=== PATIENT | male | born 1970 | race Caucasian/White ===

== ENCOUNTER 2018-12-19 07:33 | Emergency (ER) | payer OTHER ==
[2018-12-19] MEDS ORDERED: Sodium Chloride 0.9% 1,000 ML IV STA (08:16)
[2018-12-19] MEDS ORDERED: Sodium Chloride 0.9% 10 ML Syringe FLUSH PRN (08:16)
[2018-12-19] MEDS ORDERED: Ondansetron 4 MG/2 ML SDV IVPUSH ONE (08:16)
[2018-12-19] MEDS ORDERED: HYDROmorphone 0.5 MG/0.5 ML Syringe IVPUSH ONE ×2 (08:19→10:58)
--- NOTE | 2018-12-19 10:13 | CT ---
Head CT Technique: Multiple axial sections through the brain were obtained. Intravenous contrast was not utilized. Comparison: No prior intracranial imaging. Findings: Ventricles along with basal cisterns and sulci over the convexities are within normal limits for the patient's age. No abnormal parenchymal densities are seen. No evidence of intracranial hemorrhage. No midline shift or mass effect is seen. Bone window settings were reviewed which show no acute paranasal sinus findings. Mastoid sinuses are clear. No acute calvarial abnormality is appreciated. Impression: 1. Nothing acute is identified on noncontrast head CT exam. Diagnostic code #1
[2018-12-19] MEDS ORDERED: cefTRIAXone 1 GM in Sodium Chloride 0.9% 100 ML IV ONE (12:31)
[2018-12-19] MEDS ORDERED: Sodium Chloride 0.9% 1,000 ML IV ONE (12:31)
[2018-12-19] MEDS ORDERED: Metoclopramide 10 MG/2 ML SDV IVPUSH ONE (12:32)
--- NOTE | 2018-12-19 12:52 | EDM.PDOC ---
ED HPI GENERAL MEDICAL PROBLEM - General Chief Complaint: Fever Stated Complaint: VOMITING,FEVER,CHILLS AND YELLOWING IN EYES Time Seen by Provider: 12/19/18 07:53 Source of Information: Reports: Patient, Family History Limitations: Reports: No Limitations - History of Present Illness INITIAL COMMENTS - FREE TEXT/NARRATIVE: The patient presents with a fever, chills, headache, neck pain, abdominal pain, nausea and vomiting. 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 He has not been eating or drinking much. He had a temp of 100 now. He denies a sore throat or cough. He has no chest pain. He has no health problems. He has no numbness but he does have generalized weakness. Onset: Gradual Duration: Day(s): (Since Wednesday) Location: Reports: Head, Neck, Abdomen Quality: Reports: Sharp Severity: Moderate Improves with: Reports: None Worsens with: Reports: None Associated Symptoms: Reports: Fever/Chills, Headaches, Nausea/Vomiting. 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 Headache Pain Score (Numeric/FACES): 7 - Related Data Allergies Allergy/AdvReac Type Severity Reaction Status Date / Time No Known Allergies Allergy Verified 12/19/18 07:51 Home Meds: Home Meds Ondansetron [Zofran ODT] 4 mg PO Q6H PRN #20 tab.dis 12/19/18 [Rx] Past Medical History - Past Health History Medical/Surgical History: Denies Medical/Surgical History Social & Family History - Tobacco Use Smoking Status *Q: Never Smoker - Caffeine Use Caffeine Use: Reports: Energy Drinks - Recreational Drug Use Recreational Drug Use: No ED ROS GENERAL - Review of Systems Review Of Systems: See Below Constitutional: Reports: Fever, Chills, Malaise, Weakness, Fatigue HEENT: Reports: No Symptoms Respiratory: Reports: No Symptoms Cardiovascular: Reports: No Symptoms Endocrine: Reports: No Symptoms GI/Abdominal: Reports: Abdominal Pain, Nausea, Vomiting. Denies: Diarrhea : Reports: No Symptoms Musculoskeletal: Reports: Neck Pain Skin: Reports: No Symptoms Neurological: Reports: No Symptoms ED EXAM, SEPSIS - Physical Exam Exam: See Below Exam Limited By: No Limitations General Appearance: Alert, No Apparent Distress Ears: Normal External Exam Nose: Normal Inspection Throat/Mouth: Normal Inspection Head: Atraumatic, Normocephalic Neck: Tender Midline, Other (More pain with neck flexion) Respiratory/Chest: No Respiratory Distress, Lungs Clear, Normal Breath Sounds Cardiovascular: Regular Rate, Rhythm, No Edema, No Murmur GI/Abdominal Exam: Soft, Non-Tender, No Organomegaly, No Mass Back: Normal Inspection Extremities: Normal Inspection ED SEPSIS PROCEDURES - Lumbar Puncture Indication: Fever, Nuchal Rigidity, Headache Consent Obtained: Patient Position: Right Prep: CDC/MBT Guidelines, Sterile Drapes, Betadine Local Anesthesia - Lidocaine (Xylocaine): 1% Plain Local Anesthetic Volume: 2cc Vertebral Interspace: L3/L4 Spinal Needle with Stylet: 22ga, 3.5 Inch (Adult) Number of Attempts: 1 Fluid Appearance: Clear Tubes Obtained: 4 Total Fluid Amount: 4cc Complications: No Sterile Dressing: Adhesive Dressing Course - Vital Signs Last Recorded V/S: Last Vital Signs Temp 100.0 F 12/19/18 07:48 Pulse 91 12/19/18 07:48 Resp 18 12/19/18 07:48 BP 133/90 12/19/18 07:48 Pulse Ox 97 12/19/18 07:48 - Orders/Labs/Meds Orders: Active Orders 24 hr Category Date Time Status Peripheral IV Care [RC] . DIRECTED Care 12/19/18 08:16 Active CELL COUNT,CSF TUBE 2 [BF] Stat Lab 12/19/18 10:47 Results CULTURE BLOOD [BC] Stat Lab 12/19/18 08:45 Received CULTURE BLOOD [BC] Stat Lab 12/19/18 08:50 Received CULTURE CSF + SMEAR [RM] Stat Lab 12/19/18 10:47 Received UA W/MICROSCOPIC [URIN] Stat Lab 12/19/18 08:16 Ordered Sodium Chloride 0.9% [Normal Saline] 1,000 ml Med 12/19/18 12:31 Active IV ONETIME Sodium Chloride 0.9% [Saline Flush] Med 12/19/18 08:16 Active 10 ml FLUSH ASDIRECTED PRN cefTRIAXone [Rocephin] 1 gm Med 12/19/18 12:31 Active Sodium Chloride 0.9% [Normal Saline] 100 ml IV ONETIME Blood Culture x2 Reflex Set [OM.PC] Stat Oth 12/19/18 08:16 Ordered ED Antiemetic Medication Reflex [OM.PC] Stat Oth 12/19/18 08:17 Ordered Peripheral IV Insertion Adult [OM.PC] Stat Oth 12/19/18 08:16 Ordered Medication Orders Ceftriaxone Sodium 1 gm/ (Sodium Chloride) 100 mls @ 200 mls/hr IV ONETIME ONE Stop: 12/19/18 13:00 Last Admin: 12/19/18 12:42 Dose: 200 mls/hr Sodium Chloride (Normal Saline) 1,000 mls @ 1,000 mls/hr IV ONETIME ONE Stop: 12/19/18 13:30 Last Admin: 12/19/18 12:40 Dose: 1,000 mls/hr Sodium Chloride (Saline Flush) 10 ml FLUSH ASDIRECTED PRN PRN Reason: Keep Vein Open Last Admin: 12/19/18 08:30 Dose: 10 ml Labs: Laboratory Tests 12/19/18 12/19/18 12/19/18 Range/Units 08:05 08:05 08:45 WBC 2.19 L* (4.23-9.07) K/mm3 RBC 5.60 (4.63-6.08) M/mm3 Hgb 15.8 (13.7-17.5) gm/L Hct 45.2 (40.1-51.0) % MCV 80.7 (79.0-92.2) fl MCH 28.2 (25.7-32.2) pg MCHC 35.0 (32.2-35.5) g/dl RDW Std Deviation 39.8 (35.1-43.9) fL Plt Count 93 L (163-337) K/mm3 MPV 11.7 (9.4-12.3) fl Neut % (Auto) 61.6 (34.0-67.9) % Lymph % (Auto) 26.5 (21.8-53.1) % Sierra % (Auto) 8.2 (5.3-12.2) % Eos % (Auto) 0.5 L (0.8-7.0) Baso % (Auto) 2.7 H (0.1-1.2) % Neut # (Auto) 1.35 L (1.78-5.38) K/mm3 Lymph # (Auto) 0.58 L (1.32-3.57) K/mm3 Sierra # (Auto) 0.18 L (0.30-0.82) K/mm3 Eos # (Auto) 0.01 L (0.04-0.54) K/mm3 Baso # (Auto) 0.06 (0.01-0.08) K/mm3 Manual Slide Review Abnormal smear Sodium 137 (136-145) mEq/L Potassium 4.2 (3.5-5.1) mEq/L Chloride 101 (98-107) mEq/L Carbon Dioxide 25 (21-32) mEq/L Anion Gap 15.2 H (5-15) BUN 11 (7-18) mg/dL Creatinine 1.2 (0.7-1.3) mg/dL Est Cr Clr Drug Dosing TNP Estimated GFR (MDRD) > 60 (>60) mL/min BUN/Creatinine Ratio 9.2 L (14-18) Glucose 114 H (74-106) mg/dL Calcium 8.9 (8.5-10.1) mg/dL Total Bilirubin 1.2 H (0.2-1.0) mg/dL AST 211 H (15-37) U/L ALT 266 H (16-63) U/L Alkaline Phosphatase 197 H (46-116) U/L C-Reactive Protein 16.8 H* (<1.0) mg/dL Total Protein 7.1 (6.4-8.2) g/dl Albumin 3.6 (3.4-5.0) g/dl Globulin 3.5 gm/dL Albumin/Globulin Ratio 1.0 (1-2) Lipase 88 (73-393) U/L CSF Volume (2) ml CSF Color (2) CSF Supernat Color (2) CSF Appearance (2) (CLEAR) CSF WBC (2) (0-8) /uL CSF RBC (2) (0-0.010) /mm*3 CSF Glucose (40-70) mg/dl CSF Total Protein (15-45) mg/dl Monoscreen Negative (NEGATIVE) 12/19/18 12/19/18 Range/Units 10:47 10:47 WBC (4.23-9.07) K/mm3 RBC (4.63-6.08) M/mm3 Hgb (13.7-17.5) gm/L Hct (40.1-51.0) % MCV (79.0-92.2) fl MCH (25.7-32.2) pg MCHC (32.2-35.5) g/dl RDW Std Deviation (35.1-43.9) fL Plt Count (163-337) K/mm3 MPV (9.4-12.3) fl Neut % (Auto) (34.0-67.9) % Lymph % (Auto) (21.8-53.1) % Sierra % (Auto) (5.3-12.2) % Eos % (Auto) (0.8-7.0) Baso % (Auto) (0.1-1.2) % Neut # (Auto) (1.78-5.38) K/mm3 Lymph # (Auto) (1.32-3.57) K/mm3 Sierra # (Auto) (0.30-0.82) K/mm3 Eos # (Auto) (0.04-0.54) K/mm3 Baso # (Auto) (0.01-0.08) K/mm3 Manual Slide Review Sodium (136-145) mEq/L Potassium (3.5-5.1) mEq/L Chloride (98-107) mEq/L Carbon Dioxide (21-32) mEq/L Anion Gap (5-15) BUN (7-18) mg/dL Creatinine (0.7-1.3) mg/dL Est Cr Clr Drug Dosing Estimated GFR (MDRD) (>60) mL/min BUN/Creatinine Ratio (14-18) Glucose (74-106) mg/dL Calcium (8.5-10.1) mg/dL Total Bilirubin (0.2-1.0) mg/dL AST (15-37) U/L ALT (16-63) U/L Alkaline Phosphatase (46-116) U/L C-Reactive Protein (<1.0) mg/dL Total Protein (6.4-8.2) g/dl Albumin (3.4-5.0) g/dl Globulin gm/dL Albumin/Globulin Ratio (1-2) Lipase (73-393) U/L CSF Volume (2) 1.5 ml CSF Color (2) Colorless CSF Supernat Color (2) No xanthochromia CSF Appearance (2) Clear (CLEAR) CSF WBC (2) 1 (0-8) /uL CSF RBC (2) 0.001 (0-0.010) /mm*3 CSF Glucose 70.0 (40-70) mg/dl CSF Total Protein 26.6 (15-45) mg/dl Monoscreen (NEGATIVE) Meds: Medications Generic Name Dose Route Start Last Admin Trade Name Marlonq PRN Reason Stop Dose Admin Ceftriaxone Sodium 1 gm/ 100 mls @ 200 mls/hr 12/19/18 12:31 12/19/18 12:42 Sodium Chloride IV 12/19/18 13:00 200 mls/hr ONETIME ONE Administration Sodium Chloride 1,000 mls @ 1,000 mls/hr 12/19/18 12:31 12/19/18 12:40 Normal Saline IV 12/19/18 13:30 1,000 mls/hr ONETIME ONE Administration Sodium Chloride 10 ml 12/19/18 08:16 12/19/18 08:30 Saline Flush FLUSH 10 ml ASDIRECTED PRN Administration Keep Vein Open Discontinued Medications Generic Name Dose Route Start Last Admin Trade Name Lucas PRN Reason Stop Dose Admin Hydromorphone HCl 0.5 mg 12/19/18 08:19 12/19/18 08:31 Dilaudid IVPUSH 12/19/18 08:20 0.5 mg ONETIME ONE Administration Hydromorphone HCl 0.5 mg 12/19/18 10:58 12/19/18 11:14 Dilaudid IVPUSH 12/19/18 10:59 0.5 mg ONETIME ONE Administration Sodium Chloride 1,000 mls @ 1,000 mls/hr 12/19/18 08:16 12/19/18 08:28 Normal Saline IV 12/19/18 09:15 1,000 mls/hr .BOLUS STA Administration Metoclopramide HCl 10 mg 12/19/18 12:32 12/19/18 12:42 Reglan IVPUSH 12/19/18 12:33 10 mg ONETIME ONE Administration Ondansetron HCl 4 mg 12/19/18 08:16 12/19/18 08:30 Zofran IVPUSH 12/19/18 08:17 4 mg ONETIME ONE Administration - Re-Assessments/Exams Free Text/Narrative Re-Assessment/Exam: 12/19/18 12:53 I ordered an IV NS 1L bolus, zofran 4mg IV, labs, and blood cultures. 12/19/18 12:55 His WBC was low at 2.19. His anion gap is elevated at 15.2. His glucose is elevated at 114. His total bili is elevated at 1.2. His AST is elevated at 211. His ALT is elevated at 266. His Alk Phos is elevated at 197. His CRP is elevated at 16.8. I did a CT of his head and that was normal. I did an LP and it was clear fluid. His protein, glucose and cell counts are normal. I am waiting for blood and CSF cultures. I will give him a dose of rocephin here, more fluids and more reglan. I also ordered a [place]. Departure - Departure Time of Disposition: 13:00 Disposition: Home, Self-Care 01 Condition: Good Clinical Impression: Elevated liver enzymes, Viral syndrome Leukopenia Qualifiers: Leukopenia type: other Qualified Code(s): D72.818 - Other decreased white blood cell count Fever Qualifiers: Fever type: unspecified Qualified Code(s): R50.9 - Fever, unspecified - Discharge Information *PRESCRIPTION DRUG MONITORING PROGRAM REVIEWED*: No *COPY OF PRESCRIPTION DRUG MONITORING REPORT IN PATIENT MARITZA: No Prescriptions: Ondansetron [Zofran ODT] 4 mg PO Q6H PRN #20 tab.dis PRN Reason: Nausea\vomiting Referrals: PCP,None [Primary Care Provider] - Bib Damico MD [Physician] - 1 Week Forms: ED Department Discharge, ED Return to Work/School Form Additional Instructions: Drink plenty of fluids. Take motrin or aleve for any fever or pain. Take the zofran every 6 hours as needed for nausea and vomiting. I will call you with the rest of the lab results. Please return if you are worse. - My Orders Last 24 Hours: My Active Orders 12/19/18 08:16 Peripheral IV Care [RC] . DIRECTED UA W/MICROSCOPIC [URIN] Stat Sodium Chloride 0.9% [Saline Flush] 10 ml FLUSH ASDIRECTED PRN Blood Culture x2 Reflex Set [OM.PC] Stat Peripheral IV Insertion Adult [OM.PC] Stat 12/19/18 08:17 ED Antiemetic Medication Reflex [OM.PC] Stat 12/19/18 08:45 CULTURE BLOOD [BC] Stat 12/19/18 08:50 CULTURE BLOOD [BC] Stat 12/19/18 10:47 CELL COUNT,CSF TUBE 2 [BF] Stat CULTURE CSF + SMEAR [RM] Stat 12/19/18 12:31 Sodium Chloride 0.9% [Normal Saline] 1,000 ml IV ONETIME cefTRIAXone [Rocephin] 1 gm Sodium Chloride 0.9% [Normal Saline] 100 ml IV ONETIME - Assessment/Plan Last 24 Hours: My Active Orders 12/19/18 08:16 Peripheral IV Care [RC] . DIRECTED UA W/MICROSCOPIC [URIN] Stat Sodium Chloride 0.9% [Saline Flush] 10 ml FLUSH ASDIRECTED PRN Blood Culture x2 Reflex Set [OM.PC] Stat Peripheral IV Insertion Adult [OM.PC] Stat 12/19/18 08:17 ED Antiemetic Medication Reflex [OM.PC] Stat 12/19/18 08:45 CULTURE BLOOD [BC] Stat 12/19/18 08:50 CULTURE BLOOD [BC] Stat 12/19/18 10:47 CELL COUNT,CSF TUBE 2 [BF] Stat CULTURE CSF + SMEAR [RM] Stat 12/19/18 12:31 Sodium Chloride 0.9% [Normal Saline] 1,000 ml IV ONETIME cefTRIAXone [Rocephin] 1 gm Sodium Chloride 0.9% [Normal Saline] 100 ml IV ONETIME
== END 2018-12-19 14:22 | disposition home or self-care (01) ==
LOC: JD.ED 07:33
DX: B34.9 Viral infection, unspecified (principal); D72.818 Other decreased white blood cell count; R74.8 Abnormal levels of other serum enzymes
CPT/HCPCS: 36415; 62270; 70450; 80053; 82945; 83690; 84157; 85025; 86140; 86308; 86788; 86789; 87040; 87070; 87205; 89050; 96361; 96365; 96375; 96376; 99284; J0696; J1170; J2405; J2765; J7030; J7040; 62272